=== PATIENT | male | born 1935 | race Caucasian/White ===

== ENCOUNTER 2021-03-10 20:57 | Emergency (ER) | payer OTHER ==
[~2021-03-10] VITALS: Ht 188 cm; Wt 93.0 kg
[~2021-03-10 20:57] MED LIST: AMOX500; AMOX875 PO; ATEN50 PO; Apriso0.375 GM PO; Bentyl10 MG PO; CELE200 PO; CITA20 PO; CYAN1000I IM; CYCL10 PO; DIGO.125; DIGO.25 PO; DOCU100 PO; FAMO20 PO; FINA5 PO; GLUCHON PO; HYDACE5 PO; HYDHCL25 PO; MELATONIN1 M1 PO; MEMA5TAB PO; MESA400ER PO; MIRALAX17 GM PO; MSM1000 PO; MULVITMINF PO; OMEP20ER PO; ONDA4ODT SL; OXYC5 PO; PENVK500 PO; PIRO20 PO; PRAV10; Pepcid40 MG PO; RABE20; RXAMOX500; RXHYDACE PO; SUCR1 PO; SULF500A PO; TRIA50 PO; URSO PO; URSO300 PO; WARF10; WARF7.5 PO; XARELTO20 MG PO; Zyrtec10 MG PO
[2021-03-10] MEDS ORDERED: MASOPHEN325 M3 PO (21:13)
[2021-03-10] MEDS ORDERED: Amlodipine Bes2.5 MG PO (21:14)
[2021-03-10] MEDS ORDERED: DONEPEZIL HCL10 MG (21:15)
[2021-03-10] MEDS ORDERED: FLUTICASONE-SA1 EAC1 (21:16)
[2021-03-10] MEDS ORDERED: GUAI200 PO (21:17)
[2021-03-10] MEDS ORDERED: MESA250ER PO (21:17)
[2021-03-10] MEDS ORDERED: ONDA4ODT (21:18)
== END 2021-03-10 22:47 | disposition home or self-care (01) ==
LOC: ER 20:57
DX: S50.01XA Contusion of right elbow, initial encounter (principal); I48.91 Unspecified atrial fibrillation; I10 Essential (primary) hypertension; E78.5 Hyperlipidemia, unspecified; W19.XXXA Unspecified fall, initial encounter
CPT/HCPCS: 99283

== ENCOUNTER 2021-08-02 07:03 | Emergency (ER) | payer OTHER ==
[~2021-08-02] VITALS: Ht 188 cm; Wt 50.8 kg
[~2021-08-02 07:03] MED LIST changes: +Amlodipine Bes2.5 MG PO; +DONEPEZIL HCL10 MG; +FLUTICASONE-SA1 EAC1; +GUAI200 PO; +MASOPHEN325 M3 PO; +MESA250ER PO; +ONDA4ODT
[2021-08-02] MEDS ORDERED: ABILIFY MYCITE5 M2 PO (07:48)
[2021-08-02] MEDS ORDERED: ACET325 PO (07:48)
[2021-08-02] MEDS ORDERED: BISA10S PR (07:49)
[2021-08-02] MEDS ORDERED: CARB10OTL (07:50)
[2021-08-02] MEDS ORDERED: DONEPEZIL HCL10 MG PO (07:51)
[2021-08-02] MEDS ORDERED: FAMO20 PO (07:51)
[2021-08-02] MEDS ORDERED: FLONASE SENSIM5.9 M1 (07:52)
[2021-08-02] MEDS ORDERED: GUAI200 PO (07:53)
[2021-08-02] MEDS ORDERED: FURO20 PO (07:53)
[2021-08-02 07:54] LABS: BASOPHILS ABSOLUTE AUTO 0.08 K/mm3 (0.00-0.23); BASOPHILS PERCENT AUTO 0 % (0-2); EOSINOPHILS PERCENT AUTO 0 % (0-6); Hematocrit 35.7 % (37.0-53.0); IMMATURE GRAN ABSOLUTE AUTO 0.53 K/mm3 (0.00-0.10); IMMATURE GRAN PERCENT AUTO 1 % (0-1); LYMPHOCYTES ABSOLUTE AUTO 0.61 K/mm3 (0.84-5.20); LYMPHOCYTES PERCENT AUTO 2 % (21-46); MONOCYTES ABSOLUTE AUTO 1.89 K/mm3 (0.16-1.47); MONOCYTES PERCENT AUTO 5 % (4-13); Mean Corpuscular HGB 33.2 pg (26.0-34.0); Mean Corpuscular HGB Conc 33.6 g/dL (31.5-36.5); Mean Corpuscular Volume 99 fL (80-100); Mean Platelet Volume 9.1 fL (9.1-12.4); NEUTROPHILS ABSOLUTE AUTO 37.42 K/mm3 (1.96-9.15); NEUTROPHILS PERCENT AUTO 92 % (41-73); Platelet Count 326 K/mm3 (150-400); RDW Standard Deviation 47.2 fL (35.1-46.3); Red Blood Cell Count 3.61 M/mm3 (4.30-5.90); White Blood Cell Count 40.53 K/mm3 (4.00-11.30)
[2021-08-02] MEDS ORDERED: LIDO700A20 TOP (07:54)
[2021-08-02] MEDS ORDERED: MELATONIN3 M3 PO (07:56)
[2021-08-02] MEDS ORDERED: MESA250ER PO (07:57)
[2021-08-02 08:13] LABS: Albumin/Globulin Ratio 0.8 (0.8-1.8); Bilirubin, Total 1.4 mg/dL (0.1-1.0); Bun/Creatinine Ratio 29.9 (12.0-20.0); Calcium, Blood 8.5 mg/dL (8.5-10.1); Creatinine, Blood 0.74 mg/dL (0.60-1.20); Globulin, Blood 3.7 g/dL (2.2-4.0); Potassium, Blood 4.2 mmol/L (3.5-5.5); Total Protein, Blood 6.7 g/dL (6.4-8.2)
[2021-08-02 09:41] LABS: Influenza A, PCR NEGATIVE (NEGATIVE); Influenza B, PCR NEGATIVE (NEGATIVE); Resp Syncytial Virus, PCR NEGATIVE (NEGATIVE); SARS-Cov-2 (COVID-19) PCR, MMC NEGATIVE (NEGATIVE)
[2021-08-02] MEDS ORDERED: ONDA4 PO (10:17)
[2021-08-02] MEDS ORDERED: Primalev 10-301 EACH PO (10:18)
[2021-08-02] MEDS ORDERED: POTA10T PO (10:19)
[2021-08-02] MEDS ORDERED: MIRALAX17 GM PO (10:19)
[2021-08-02] MEDS ORDERED: SENNA LAXATIVE8.6 MG PO (10:20)
[2021-08-02] MEDS ORDERED: MINIPRESS2 M1 PO (10:20)
[2021-08-02] MEDS ORDERED: SERT25 PO (10:21)
== END 2021-08-02 11:35 | disposition home or self-care (01) ==
LOC: ER 07:03
PROVIDERS: Emergency Medicine
DX: J18.9 Pneumonia, unspecified organism (principal); Z79.899 Other long term (current) drug therapy
CPT/HCPCS: 0241U; 36415; 71046; 80053; 83605; 83880; 84484; 85025; 93005; 93010; J0456; J0696; J7030; J7050